=== PATIENT | female | born 1985 | race Caucasian/White ===

== ENCOUNTER → 2017-01-09 | Outpatient (CLI) | payer BC ==
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
== END | disposition home or self-care (01) ==
LOC: RADUSWWP 11:52
PROVIDERS: ATTEND Family Medicine
DX: R10.11 Right upper quadrant pain (principal)
CPT/HCPCS: 76700

== ENCOUNTER → 2017-04-01 | Outpatient (CLI) | payer BC ==
--- NOTE | 2017-04-02 07:40 | WWHP ---
[facility] - HISTORY AND PHYSICAL DATE OF SERVICE: 04/01/17 CHIEF COMPLAINT: The patient is here for her routine gynecologic exam. HISTORY OF PRESENT ILLNESS: This is a 32-year-old G1, P 1, with an LMP of 03/31/2017. She is on Julebuer oral contraceptives for control. The patient states she has been experiencing some pelvic pressure and occasional sharp pains in the pelvic area for the past few months. She states it has been intermittent and random. She does tend to feel pressure in the pelvis more in the past few months. The sharper pains are infrequent but are mostly on the right side. When she does have the sharp pains that could be rated at a 6 out of 10. She does have a history of an ovarian cyst that was followed conservatively in 2014. PAST MEDICAL HISTORY: Unremarkable. MEDICATIONS: Julebuer oral contraception 1 daily. ALLERGIES: TO BACTRIM AND CIPROFLOXACIN. PAST SURGICAL HISTORY: Unremarkable. 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 She does have a history of mild hypermenorrhea and mild dysmenorrhea when she is not on oral contraception. She has no history of STDs. SOCIAL HISTORY: She smokes a half a pack of cigarettes per day and has 0-6 alcohol containing drinks per week. She denies drug use. She has been since 2012. 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 FAMILY HISTORY: Maternal grandmother had breast, cervical and ovarian cancer. She also believes maternal great aunt had breast cancer. REVIEW OF SYSTEMS: She has been but gained about 5 pounds over the last year. She denies respiratory, cardiac or GI problems. PHYSICAL EXAM: Blood pressure 113/63, height 5 feet 3 inches, weight 144 pounds, temperature 96.5, pulse 107. This is a well-developed, well-nourished, white female, who is alert and oriented x3, in no acute distress. HEENT is within normal limits. NECK: Supple without mass or thyromegaly. Chest, LUNGS: Clear to auscultation. Heart mild tachycardia. Breasts are without mass or discharge. Axillary exam is negative for adenopathy. Back negative for CVA tenderness. ABDOMEN: Soft, nontender, without palpable masses pelvic exam normal external genitalia. Cervix and vagina appear normal. There is no unusual discharge. There is no cervical motion tenderness. The uterus is mid position nongravid size and there is some mild uterine tenderness with bimanual examination. There is also mild right adnexal tenderness without a palpable mass. There is no left adnexal tenderness or mass. Rectal exam is negative for mass or tenderness. EXTREMITIES: Nontender. IMPRESSION: 1. A 32-year-old female on oral contraception. 2. Pelvic pressure and intermittent right sharp pelvic pains over the past few months with mild uterine and right adnexal tenderness on exam today. PLAN: 1. Pap smear was deferred since she had a negative one last year. 2. Self breast examination was discussed. 3. Continue oral contraception as prescribed and a prescription for the upcoming year was given to the patient for this. 4. Pelvic ultrasound will be scheduled because of the pelvic pressure, pain and tenderness. 5. I have recommended that the patient quit smoking as she understands the risk for blood clots, including heart attack, stroke are increased with oral contraception and more increased with smoking. 6. She will return in 1 year. MMODL / IJN: [id number] /
== END | disposition home or self-care (01) ==
LOC: WWCWWP 11:31
PROVIDERS: ATTEND Obstetrics & Gynecology
DX: Z01.411 Encounter for gynecological examination (general) (routine) with abnormal findings (principal); R10.2 Pelvic and perineal pain

== ENCOUNTER → 2017-04-02 | Outpatient (CLI) | payer BC ==
--- NOTE | 2017-04-02 13:47 | US ---
EXAMINATION TYPE: US transvaginal DATE OF EXAM: 04/02/2017 COMPARISON: NONE CLINICAL HISTORY: R10.2 PELVIC PAIN RIGHT. Pelvic pressure, intermittent right pelvic pain TECHNIQUE: Transvaginal (TV) Date of LMP: 03/27/17 EXAM MEASUREMENTS: Uterus: 8.1 x 4.0 x 4.7 cm Endometrial Stripe: 0.2 cm Right Ovary: 3.0 x 2.2 x 1.9 cm Left Ovary: 2.3 x 1.3 x 1.2 cm 1. Uterus: Anteverted mildly heterogenous echotexture with no focal measurable lesion. 2. Endometrium: appears wnl 3. Right Ovary: follicles noted 4. Left Ovary: follicles noted 5. Bilateral Adnexa: appears wnl 6. Posterior cul-de-sac: small amount of free fluid IMPRESSION: 1. Previously seen ovarian cysts are no longer evident and were likely physiologic, now resolved. 2. Small amount of pelvic free fluid, likely physiologic in nature.
== END | disposition home or self-care (01) ==
LOC: RADUSWWP 13:04
PROVIDERS: ATTEND Obstetrics & Gynecology
DX: R10.2 Pelvic and perineal pain (principal)
CPT/HCPCS: 76830

== ENCOUNTER → 2018-05-19 | Outpatient (CLI) | payer BC ==
[2018-05-19 13:37] LABS: Appearance,Urine Clear (Clear); Bilirubin,Urine Negative (Negative); Blood,Urine Negative (Negative); Color,Urine Light Yellow; Glucose,Urine (UA) Negative (Negative); Ketones,Urine Negative (Negative); Leukocyte Esterase,Urine Negative (Negative); Nitrite,Urine Negative (Negative); PH, Urine 6.5 (5.0-8.0); Protein,Urine Negative (Negative); Specific Gravity,Urine 1.005 (1.001-1.035); Urobilinogen,Urine <2.0 mg/dL (<2.0)
[2018-05-19 21:39] LABS: Protein, Total 6.4 g/dL (6.2-8.2)
[2018-05-20 15:33] LABS: Albumin 3.78 g/dL (3.80-4.90); Gamma Globulin 0.79 g/dL (0.70-1.50)
== END ==
LOC: LABWHC1 12:23
PROVIDERS: ATTEND Allergy & Immunology
DX: L50.9 Urticaria, unspecified (principal)
CPT/HCPCS: 36415; 81003; 82784; 84165; 86334; 88184; 88185

== ENCOUNTER → 2018-05-27 | Outpatient (CLI) | payer BC ==
--- NOTE | 2018-05-27 13:51 | XR ---
EXAMINATION TYPE: XR chest 2V DATE OF EXAM: 05/27/2018 COMPARISON: NONE HISTORY: Chest pain TECHNIQUE: Frontal and lateral views of the chest are obtained. FINDINGS: There is no focal air space opacity. No evidence for pneumothorax. No pleural effusion. The cardiac silhouette size is within normal limits. The osseous structures are grossly intact. IMPRESSION: 1. No acute cardiopulmonary process.
[2018-05-28 13:22] LABS: Beef IgE <0.35 kU/L (<0.35); Beef IgE Class CLASS 0; Broccoli IgE <0.35 kU/L (<0.35); Broccoli IgE Class CLASS 0; Cucumber IgE <0.35 kU/L (<0.35); Cucumber IgE Class CLASS 0
[2018-05-28 13:23] LABS: Carrot IgE 2.22 kU/L (<0.35); Carrot IgE Class CLASS II; Potato IgE 1.34 kU/L (<0.35); Potato IgE Class CLASS II
[2018-05-28 13:24] LABS: Chicken IgE Class CLASS 0; Coffee IgE <0.35 kU/L (<0.35); Coffee IgE Class CLASS 0; Onion IgE 0.66 kU/L (<0.35); Onion IgE Class CLASS I
== END | disposition home or self-care (01) ==
LOC: LABWHC1 12:52
PROVIDERS: ATTEND Allergy & Immunology
DX: R07.9 Chest pain, unspecified (principal); L50.9 Urticaria, unspecified
CPT/HCPCS: 36415; 71046; 86003

== ENCOUNTER → 2019-02-11 | Outpatient (CLI) | payer BC ==
--- NOTE | 2019-02-12 01:40 | MR ---
EXAMINATION TYPE: MR brain wo con DATE OF EXAM: 02/11/2019 COMPARISON: None HISTORY: Transient cerebral ischemic attack Standard multiplanar, multisequence MRI departmental protocol Multiplanar, multisequence images of the brain were acquired. Diffusion weighted imaging was performe d. FINDINGS: Ventricles and sulci appear normal. There is no mass effect nor midline shift. There is no sign of intracranial hemorrhage. There is no evidence of cortical infarct. Hathaway-white matter structur es have fairly normal signal pattern. There is no evidence of cerebral edema. There is some mucosal m ild thickening in the anterior ethmoid sinus. Brainstem is intact. Corpus callosum appears normal. Se lla turcica is normal. IMPRESSION: Normal MR scan of the brain. Minimal ethmoid sinusitis.
== END | disposition home or self-care (01) ==
LOC: RADMRIMAIN 16:29
PROVIDERS: ATTEND Internal Medicine
DX: J32.2 Chronic ethmoidal sinusitis (principal); G45.9 Transient cerebral ischemic attack, unspecified
CPT/HCPCS: 70551

== ENCOUNTER 2019-10-08 01:02 | Inpatient (IN) | payer BC ==
[2019-10-08] MEDS ORDERED: LIDOCAINE 0.5% (PF) 5 MG/ML (50 ML SDV) SQ PRN (01:35)
[2019-10-08] MEDS ORDERED: OXYTOCIN 10 UNIT/ML 1 ML VIAL IM PRN (01:35)
[2019-10-08] MEDS ORDERED: CARBOPROST TROMETHAMINE 250 MCG/ML 1 ML AMP IM PRN (01:35)
[2019-10-08] MEDS ORDERED: AMPICILLIN 2,000 MG in SODIUM CHLORIDE 0.9% 100 ML IVPB STA (01:35)
[2019-10-08] MEDS ORDERED: TERBUTALINE 1 MG/ML VIAL SQ PRN (01:35)
[2019-10-08] MEDS ORDERED: METHYLERGONOVINE 0.2 MG/ML 1 ML AMP IM PRN (01:35)
[2019-10-08] MEDS: LACTATED RINGERS 1,000 ML IV SCH ×2 (02:01→06:33)
[2019-10-08 02:13] LABS: Basophils % (A) 0 %; Eosinophils # (A) 0.2 k/uL (0-0.7); Eosinophils % (A) 2 %; HCT 34.6 % (34.0-46.0); HGB 11.8 gm/dL (11.4-16.0); Lymphocytes # (A) 2.4 k/uL (1.0-4.8); Lymphocytes % (A) 21 %; MCH 31.4 pg (25.0-35.0); MCV 92.3 fL (80.0-100.0); Mean Platelet Volume 9.4; Monocytes # (A) 0.6 k/uL (0-1.0); Monocytes % (A) 5 %; Neutrophils # (A) 7.8 k/uL (1.3-7.7); Neutrophils % (A) 69 %; Platelet Count 241 k/uL (150-450); RBC 3.75 m/uL (3.80-5.40); RDW 14.1 % (11.5-15.5); WBC 11.4 k/uL (3.8-10.6)
[2019-10-08] MEDS ORDERED: BUTORPHANOL 1 MG/ML 1 ML VIAL IV PRN (04:39)
[2019-10-08] MEDS ORDERED: OXYTOCIN 30 UNITS/500 ML NS 30 UNIT in SALINE 1 500ML.BAG IV SCH (05:00)
[2019-10-08] MEDS: AMPICILLIN 1,000 MG in SODIUM CHLORIDE 0.9% 50 ML IVPB SCH ×2 (06:09→10:44)
[2019-10-08] MEDS ORDERED: ROPIVACAINE 5MG/ML 20ML VIAL ONE (06:16)
[2019-10-08] MEDS ORDERED: SODIUM CHLORIDE 0.9% 100 ML BAG ONE (06:16)
[2019-10-08] MEDS ORDERED: fentaNYL (PF) 50 MCG/ML 5 ML AMP ONE (06:16)
[2019-10-08] MEDS ORDERED: HYDROcodone/APAP 5-325MG 1 EACH TAB PO PRN (08:40)
[2019-10-08] MEDS ORDERED: SIMETHICONE 80 MG CHEWABLE PO PRN (08:40)
[2019-10-08] MEDS ORDERED: diphenhydrAMINE 50 MG/ML 1 ML VIAL IVP PRN ×2 (08:40)
[2019-10-08] MEDS ORDERED: WITCH HAZEL 1 EACH MED..PAD TOPICAL PRN (08:40)
[2019-10-08] MEDS ORDERED: diphenhydrAMINE 25 MG CAP PO PRN (08:40)
[2019-10-08] MEDS ORDERED: ACETAMINOPHEN TAB 325 MG TAB PO PRN (08:40)
[2019-10-08] MEDS ORDERED: BENZOCAINE/MENTHOL SPRAY 1 GM/SPRAY AEROSOL TOPICAL PRN (08:40)
[2019-10-08] MEDS ORDERED: HYDROCORTISONE 2.5% RECTAL CREAM 30 GM TUBE RECTAL PRN (08:40)
[2019-10-08] MEDS ORDERED: diphenhydrAMINE 50 MG CAP PO PRN (08:40)
[2019-10-08] MEDS ORDERED: LANOLIN CREAM 5 GM TUBE TOPICAL PRN (08:40)
[2019-10-08] MEDS ORDERED: ZOLPIDEM 5 MG TAB PO PRN (08:40)
--- NOTE | 2019-10-08 08:40 | P.HPOB ---
History of Present Illness H&P Date: 10/08/19 Chief Complaint: IUP at 39 and 5/sevenths weeks, SROM, gbs pos This is a 34-year-old 2 para 1001 at 39-5/7 weeks with an estimated due date of 10/10/19 based on first trimester ultrasound. Patient presents with complaints of rupture of membranes around midnight. Charis ent states fluid was noted to be clear in nature. Patient has been receiving routine care since the first trimester. Patient has known polyhydramnios and has been undergoing testing for this. Ultrasound was completed on 10/03 noted estimated weight of 74th percentile, 8 lbs. 5 oz. with amniotic fluid index of 27 consistent with polyhydramnios. On blood work patient has a blood type of A+, rubella immune, RPR, hepatitis B surface engine negative, HIV negative. She did fail her 1 hour Glucola but subsequently passed her 3 hour gtt. Known thyroid disease and thyroid has been stable through the . Group beta strep is positive on 09/13/2019. Review of Systems Constitutional: Denies chills, Denies fatigue, Denies fever Ears, nose, mouth and throat: Denies headache Cardiovascular: Reports leg edema Respiratory: Denies dyspnea Gastrointestinal: Denies nausea, Denies vomiting Genitourinary: Reports Past Medical History Past Medical History: No Reported History History of Any Multi-Drug Resistant Organisms: None Reported Past Surgical History: No Surgical Hx Reported Past Anesthesia/Blood Transfusion Reactions: No Reported Reaction Past Psychological History: No Psychological Hx Reported Smoking Status: Former smoker Past Alcohol Use History: None Reported Past Drug Use History: None Reported - Past Family History Mother Family Medical History: Thyroid Disorder Additional Family Medical History / Comment(s): hypothyroid Medications and Allergies Allergies Allergy/AdvReac Type Severity Reaction Status Date / Time ciprofloxacin [From Cipro] Allergy Severe Anaphylaxis Verified 10/08/19 01:06 azithromycin Allergy Intermediate Rash/Hives Verified 10/08/19 01:06 sulfamethoxazole Allergy Intermediate Nausea & Verified 10/08/19 01:06 [From Bactrim] Vomiting trimethoprim [From Bactrim] Allergy Intermediate Nausea & Verified 10/08/19 01:06 Vomiting Latex, Natural Rubber Allergy Unknown Unknown Verified 10/08/19 01:06 shellfish derived [Shellfish] Allergy Unknown Unknown Verified 10/08/19 01:06 Exam Osteopathic Statement: *. No significant issues noted on an osteopathic structural exam other than those noted in the History and Physical/Consult. 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 Patient was noted to be 8-9/100/-1 station. Results Result Diagrams: 10/08/19 02:06 Abnormal Lab Results - Last 24 Hours (Table) 10/08/19 Range/Units 02:06 WBC 11.4 H (3.8-10.6) k/uL RBC 3.75 L (3.80-5.40) m/uL Neutrophils # 7.8 H (1.3-7.7) k/uL Assessment and Plan (1) Term Current Visit: Yes Status: Acute Code(s): Z34.90 - ENCNTR FOR SUPRVSN OF NORMAL , UNSP, UNSP TRIMESTER SNOMED Code(s): 86023482 (2) AMA (advanced maternal age) multigravida 35+ Current Visit: Yes Status: Acute Code(s): O09.529 - SUPERVISION OF ELDERLY MULTIGRAVIDA, UNSPECIFIED TRIMESTER SNOMED Code(s): 023478838 (3) Polyhydramnios Current Visit: Yes Status: Acute Code(s): O40.9XX0 - POLYHYDRAMNIOS, UNSP TRIMESTER, NOT APPLICABLE OR UNSP SNOMED Code(s): 35818222 (4) SROM (spontaneous rupture of membranes) Current Visit: Yes Status: Acute Code(s): XZA8611 - SNOMED Code(s): 497778121 Plan: Patient is admitted to labor and delivery with anticipation of spontaneous vaginal delivery.
--- NOTE | 2019-10-08 08:44 | P.PROBDLV ---
Vaginal Delivery Note - . Vaginal Delivery Note: This is a 34-year-old 2 para 1001 at 39-5/7 weeks that presents to labor and delivery with complaints of spontaneous rupture is of membranes. Patient noted fluid to be clear in nature. Patient was admitted to labor and delivery and noted to be 3 cm dilated. Patient made minimal progress through labor and Pitocin augmentation of labor was begun. Patient became uncomfortable requested epidural placement. Epidural was placed without difficulty by the anesthesia department. Patient progressed to complete began pushing and had a normal spontaneous vaginal delivery of a viable male at 822, weight of 8 lbs. 8 oz. with Apgars of 7 and 9 at one and 5 minutes respectively. Infant was noted to have a nuchal cord which was delivered through, the was handed off to the maternal abdomen. The placenta was then delivered spontaneously intact with a three-vessel cord being noted. Inspection the patient's vaginal vault a small first-degree vaginal laceration was noted which was repaired with a [id number] suture of 3-0 Rapide. A labial laceration on the patient's right was noted therefore 2 simple sutures were used to obtain closure. The uterus is noted to be firm and below the umbilicus after delivery. Estimated blood loss 100 mL. Mom and infant tolerated delivery well and are resting complete.
[2019-10-08] MEDS ORDERED: OXYTOCIN 20 UNITS/1000 ML NS 1,000 ML IV SCH (08:45)
[2019-10-08] MEDS: IBUPROFEN 600 MG TAB PO PRN ×3 (10:42→23:21)
[2019-10-08] MEDS ORDERED: SENNOSIDES-DOCUSATE SODIUM 1 EACH TAB PO SCH (20:00)
[2019-10-08] MEDS: ACETAMINOPHEN TAB 500 MG TAB PO PRN (20:26)
[2019-10-09] MEDS: ACETAMINOPHEN TAB 500 MG TAB PO PRN (02:39)
[2019-10-09] MEDS: IBUPROFEN 600 MG TAB PO PRN (06:18)
[2019-10-09 07:48] LABS: Basophils # (A) 0.1 k/uL (0-0.2); Basophils % (A) 0 %; Eosinophils # (A) 0.3 k/uL (0-0.7); Eosinophils % (A) 2 %; HCT 31.9 % (34.0-46.0); HGB 10.4 gm/dL (11.4-16.0); Lymphocytes # (A) 2.8 k/uL (1.0-4.8); Lymphocytes % (A) 20 %; MCH 30.9 pg (25.0-35.0); MCHC 32.7 g/dL (31.0-37.0); MCV 94.6 fL (80.0-100.0); Mean Platelet Volume 9.1; Monocytes # (A) 0.6 k/uL (0-1.0); Monocytes % (A) 4 %; Neutrophils % (A) 71 %; Platelet Count 211 k/uL (150-450); RBC 3.37 m/uL (3.80-5.40); RDW 14.4 % (11.5-15.5); WBC 14.1 k/uL (3.8-10.6)
[2019-10-09 08:29] VITALS: BP 120/66; PULSE 90; RESP 18; TEMP 97.9
--- NOTE | 2019-10-09 10:47 | P.DS ---
Providers Date of admission: 10/08/19 01:24 Expected date of discharge: 10/09/19 Attending physician: Ephraim Mahmood Primary care physician: Stated None Hospital Course: This is a 34-year-old white female 2 para 1001 EDC 10/10/2019 at 39-5/7 weeks' gestation. Patient presented with spontaneous amniorrhexis which occurred at home, clear fluid. is remarkable for rubella status immune, positive group B strep cultures, blood type A+. Please see dictated history and physical for details. Oxytocin augmentation was started per protocol. Patient went on to deliver vaginally a liveborn male with scores of 7 and 9 at one and 5 minutes respectively. He weighed 8 lbs. 8 oz. or 3850 g. There was a fractured clavicle noted at per insurance analyst, good mobility and function and good blood flow of the extremity. There was a small first-degree perineal laceration easily repaired. Please see dictated delivery note for details. This morning the patient is doing well. She is fatigued, but otherwise voiding, ambulating, passing flatus without difficulty. Vital signs are stable and she is afebrile. Fundus is firm, below the umbilicus, nontender smooth and symmetric. Extremities are negative for edema. Breasts are not engorged. Patient is judged to be in very good condition for discharge home. Patient will follow-up in the office with Dr. Matos in 4 weeks. She is reminded no intercourse, tampons or douching. We have briefly discussed contraceptive options and she will discuss this further in the office. Instructions are giving regarding proper care of the fractured clavicle and patient appears comfortable with same. She will call the office with any fevers shakes or chills, foul smelling or copious lochia, with the passage of large blood clots, with any pain not alleviated by [id number] products, or indeed with any concerns. Patient Condition at Discharge: Good Plan - Discharge Summary Discharge Rx Participant: No Follow up Appointment(s)/Referral(s): Jesi Matos DO [Doctor of Osteopathic Medicine] - 4 Weeks Discharge Disposition: HOME SELF-CARE
== END 2019-10-09 12:15 | disposition home or self-care (01) | DRG 807 ==
LOC: FBPOP 01:02 → 4FBP 01:24
PROVIDERS: ADMIT Obstetrics & Gynecology Obstetrics; ATTEND Obstetrics & Gynecology
DX: O69.81X0 Labor and delivery complicated by cord around neck, without compression, not applicable or unspecified (principal); Z37.0 Single live birth; O40.3XX0 Polyhydramnios, third trimester, not applicable or unspecified; O70.0 First degree perineal laceration during delivery; O99.284 Endocrine, nutritional and metabolic diseases complicating childbirth; O99.824 Streptococcus B carrier state complicating childbirth; E07.9 Disorder of thyroid, unspecified; Z3A.39 39 weeks gestation of pregnancy; Z87.891 Personal history of nicotine dependence; Z88.2 Allergy status to sulfonamides; Z88.1 Allergy status to other antibiotic agents; Z91.040 Latex allergy status; Z91.013 Allergy to seafood
CPT/HCPCS: 59025; 84112; 85025; 86850; 86900; 86901; 99213

== ENCOUNTER → 2023-09-22 | Outpatient (CLI) | payer BC ==
--- NOTE | 2023-09-25 22:53 | MM ---
Reason for Exam: Screening (asymptomatic). Baseline mammogram. Patient History: Menarche at age 11. First Full-Term at age 17. Patient has history of breast feeding. Patient used Hormonal Contraceptives for 8 years. Maternal grandmother had breast cancer at or over age 50. Last menstrual period: 09/08/2023 Risk Values: Jenny 5 year model risk: 0.4%. NCI Lifetime model risk: 7.4%. Prior Study Comparison: Patient's first Mammogram. Tissue Density: The breasts are heterogeneously dense, which may obscure small masses. Findings: Analyzed By CAD. The pattern is symmetrical. No suspicious groups of microcalcifications, spiculated or lobular masses, architectural distortion or other secondary signs of malignancy are mammographically apparent.The pattern is symmetrical. Small focal asymmetry may be within the mid lateral left breast. No suspicious groups of microcalcifications, spiculated or lobular masses, architectural distortion or other secondary signs of malignancy are mammographically apparent. Overall Assessment: Benign, BI-RAD 2 Management: Screening Mammogram of both breasts in 1 year. A negative mammogram report should not preclude additional follow up of suspicious palpable abnormalities. Patient should continue monthly self breast exam. A clinical breast exam by your physician is recommended on an annual basis and results should be correlated with mammographic findings. Electronically signed and approved by: Antoni De Los Santos D.O. Radiologis
== END | disposition home or self-care (01) ==
LOC: RADMAMWWP 13:38
PROVIDERS: ATTEND Family Medicine
DX: Z12.31 Encounter for screening mammogram for malignant neoplasm of breast (principal); Z80.3 Family history of malignant neoplasm of breast
CPT/HCPCS: 77063; 77067

== ENCOUNTER → 2023-10-07 | Outpatient (CLI) | payer BC ==
[2023-10-07 11:50] VITALS: BP 118/76; PULSE 101; RESP 17; TEMP 97.8
--- NOTE | 2023-10-07 12:33 | P.HPOB ---
History of Present Illness H&P Date: 10/07/23 Chief Complaint: The patient is here for her routine gynecologic exam. This is a 38-year-old G2, P2 with an LMP of 09/08/2023. Patient is here to reestablish with this office. Her last pelvic exam was after having her baby in 2019. He has been using condoms for control. Her was scheduled for a vasectomy, but he did not go through with it. She is without gynecologic complaints. Review of Systems The patient has gained 10 pounds over the last year. She denies respiratory, cardiac, or G.I. problems. 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 History of Any Multi-Drug Resistant Organisms: None Reported Past Surgical History: No Surgical Hx Reported Past Anesthesia/Blood Transfusion Reactions: No Reported Reaction Past Psychological History: No Psychological Hx Reported Smoking Status: Current every day smoker (About a half a pack of cigarettes per day.) Past Alcohol Use History: Occasional (0-6 drinks per week.) Past Drug Use History: None Reported Additional History: She has been since 2012. - Past Family History Mother Family Medical History: Thyroid Disorder Additional Family Medical History / Comment(s): hypothyroid Grandmother Family Medical History: Cancer Additional Family Medical History / Comment(s): Breast, cervical, and ovarian cancer. This was a maternal grandmother. Medications and Allergies Home Medications Medication Instructions Recorded Confirmed Type Cetirizine HCl [Zyrtec] 10 mg PO DAILY 10/07/23 10/07/23 History Allergies Allergy/AdvReac Type Severity Reaction Status Date / Time ciprofloxacin [From Cipro] Allergy Severe Anaphylaxis Verified 10/07/23 11:41 azithromycin Allergy Intermediate Rash/Hives Verified 10/07/23 11:41 sulfamethoxazole Allergy Intermediate Nausea & Verified 10/07/23 11:41 [From Bactrim] Vomiting trimethoprim [From Bactrim] Allergy Intermediate Nausea & Verified 10/07/23 11:41 Vomiting Latex, Natural Rubber Allergy Unknown Unknown Verified 10/07/23 11:41 shellfish derived [Shellfish] Allergy Unknown Unknown Verified 10/07/23 11:41 Exam Vital Signs Temp Pulse Resp BP Pulse Ox 10/07/23 11:43 97.8 F 101 H 17 118/76 98 Height 5 feet 2 inches, weight 160 pounds, BMI 9. This is a well-developed well-nourished female who is alert and oriented times 3 in no acute distress. HEENT: Within normal limits. NECK: Supple without mass or thyromegaly. CHEST AND LUNGS: Clear to auscultation. HEART: Regular rate and rhythm. BREASTS: Are without mass or discharge. AXILLARY EXAM: Negative for adenopathy. BACK: Negative for CVA tenderness. ABDOMEN: Soft, nontender, without palpable masses. PELVIC EXAM: Normal external genitalia. Cervix and vagina appear normal. There is no unusual discharge. There is no evidence of prolapse. The uterus is midposition, nongravid size and nontender. There are no palpable adnexal masses or tenderness. RECTAL EXAM: negative for mass or tenderness. EXTREMITIES: Nontender. IMPRESSION: 1. 38-year-old female with normal gynecologic exam. 2. Condoms for control. PLAN: 1. Pap smear cotest was performed. 2. Self breast awareness was discussed with the patient. We have also discussed symptoms associated with inflammatory breast cancer. 3. Screening mammogram was done on 09/22/2023 and was benign. Repeat this after 1 year 4. Osteoporosis prevention was discussed. I have stressed the importance of adequate calcium, vitamin D and regular exercise. Recommended amounts of calcium and vitamin D were also discussed. 5. With control options were discussed including vasectomy, tubal sterilization, IUD. She still is hoping that her will go through with having the vasectomy. If so, I have recommended that she use condoms until he has gone for the follow-up and after it has been found to be effective. If she is considering tubal sterilization or the IUD, she can see Dr. Mahmood who saw her through her recent . 6. She was advised to return in one year for her annual well woman exam.
== END ==
LOC: WWCWWP 11:21
PROVIDERS: ATTEND Obstetrics & Gynecology
DX: Z01.419 Encounter for gynecological examination (general) (routine) without abnormal findings (principal); F17.210 Nicotine dependence, cigarettes, uncomplicated; Z88.1 Allergy status to other antibiotic agents; Z88.2 Allergy status to sulfonamides; Z91.040 Latex allergy status; Z91.013 Allergy to seafood

== ENCOUNTER → 2024-05-04 | Outpatient (CLI) | payer BC ==
--- NOTE | 2024-05-04 13:47 | XR ---
EXAMINATION TYPE: XR sacroiliac joint comp BILAT DATE OF EXAM: 05/04/2024 1:34 PM COMPARISON: None. 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 FINDINGS: Sacroiliac joints are normal. Sacrum appears intact. No joint space narrowing is evident. IMPRESSION: 1. Unremarkable sacroiliac joints. [facility], , 05/04/2024 1:45 PM
--- NOTE | 2024-05-04 13:48 | XR ---
EXAMINATION TYPE: XR lumbar spine 2 or 3V DATE OF EXAM: 05/04/2024 1:34 PM COMPARISON: None. CLINICAL INDICATION: Female, 39 years old with history of G57.01 LESION OF SCIATIC NERVE, increasing low back pain radiating to pelvis TECHNIQUE: XR lumbar spine 2 or 3V view(s) obtained. FINDINGS: 5 lumbar type vertebral bodies. Pedicles are intact. There is narrowing of the L5-S1 disc height. Anthony tebral body heights are preserved. Remaining disc heights are preserved. Alignment is normal. IMPRESSION: 1. Degenerative disc changes L5-S1. [facility], , 05/04/2024 1:46 PM
== END | disposition home or self-care (01) ==
LOC: RADXRMAIN 13:01
PROVIDERS: ATTEND Family Medicine
DX: M51.370 Other intervertebral disc degeneration, lumbosacral region with discogenic back pain only (principal); G57.01 Lesion of sciatic nerve, right lower limb
CPT/HCPCS: 72100; 72202

== ENCOUNTER → 2024-07-26 | Outpatient (CLI) | payer BC ==
[2024-07-26 19:09] LABS: Protein, Total 7.1 g/dL (6.2-8.2)
[2024-07-26 19:16] LABS: Basophils % (A) 1.3 %; Eosinophils # (A) 0.13 X 10*3/uL (0.04-0.35); Eosinophils % (A) 1.7 %; HCT 42.1 % (37.2-46.3); HGB 13.9 g/dL (12.0-15.0); Lymphocytes % (A) 31.8 %; MCH 30.8 pg (27.0-32.0); MCV 93.3 FL (80.0-97.0); Mean Platelet Volume 10.4 FL (9.5-12.2); Monocytes # (A) 0.45 X 10*3/uL (0.20-1.00); Monocytes % (A) 5.7 %; NRBC Per 100 WBC 0 X 10*3/uL (0.00-0.01); Neutrophils # (A) 4.65 X 10*3/uL (1.80-7.70); Neutrophils % (A) 59.1 %; Platelet Count 298 X 10*3/uL (140-440); RBC 4.51 X 10*6/uL (4.10-5.20); RDW 13.2 % (11.5-14.5); WBC 7.86 X 10*3/uL (4.50-10.00)
[2024-07-26 19:17] LABS: ALT 9 U/L (8-44); AST 13 U/L (13-35); Albumin 4.6 g/dL (3.8-4.9); Albumin/Globulin Ratio 1.84 Ratio (1.60-3.17); Alkaline Phosphatase 69 U/L (41-126); BUN/Creat Ratio 17.14 Ratio (12.00-20.00); Calcium 9.7 mg/dL (8.7-10.3); Carbon Dioxide 22.6 mmol/L (21.6-31.8); Chloride 105 mmol/L (96-109); Chol/HDL Ratio 2.33 Ratio; Globulin 2.5 g/dL (1.6-3.3); Glucose 97 mg/dL (70-110); LDH 157 U/L (120-246); LDL Cholesterol,Calculated 89.9 mg/dL (0.0-131.0); Potassium 4.4 mmol/L (3.5-5.5); Sodium 139 mmol/L (135-145); Total Bilirubin 0.3 mg/dL (0.3-1.2); Total Protein 7.1 g/dL (6.2-8.2); VLDL Calculation 14.72 mg/dL (5.00-40.00)
[2024-07-26 19:35] LABS: Erythrocyte Sedimentation Rate 6 mm/Hr (0-20)
[2024-07-27 12:13] LABS: Free Kappa Lt Chain Qnt, Serum 1.17 mg/dL (0.33-1.94); Free Lambda Lt Chain Qnt, Seru 0.93 mg/dL (0.57-2.63)
== END | disposition home or self-care (01) ==
LOC: LABWHC1 14:15
PROVIDERS: ATTEND Family Medicine
DX: M13.0 Polyarthritis, unspecified (principal); G43.909 Migraine, unspecified, not intractable, without status migrainosus; M79.7 Fibromyalgia; R07.9 Chest pain, unspecified
CPT/HCPCS: 36415; 80053; 80061; 82164; 82550; 82552; 83615; 83883; 84165; 84443; 84484; 85025; 85379; 85652; 86334

== ENCOUNTER → 2024-09-22 | Outpatient (CLI) | payer BC ==
--- NOTE | 2024-09-22 14:45 | MM ---
Reason for Exam: Screening (asymptomatic). Last screening mammogram was performed 12 month(s) ago. Patient History: Menarche at age 11. First Full-Term at age 17. Patient has history of breast feeding. Patient used Hormonal Contraceptives for 8 years. Maternal grandmother had breast cancer at or over age 50. Risk Values: Jenny 5 year model risk: 0.4%. NCI Lifetime model risk: 7.3%. Prior Study Comparison: 09/22/2023 Bilateral MG 3D screening mammo w/cad, [facility]. Tissue Density: The breasts are heterogeneously dense, which may obscure small masses. Findings: Analyzed By CAD. There is no suspicious group of microcalcifications or new suspicious mass in either breast. And benign-appearing calcifications. Asymmetric density in the central aspect of the left breast. Overall Assessment: Benign, BI-RAD 2 Management: Screening Mammogram of both breasts in 1 year. . Patient should continue monthly self-breast exams. A clinical breast exam by your physician is recommended on an annual basis. This exam should not preclude additional follow-up of suspicious palpable abnormalities. Note on Jenny scores and lifetime risk: 1. A Jenny score greater than 3% is considered moderate risk. If this is the case, consider specialist referral to assess eligibility for a risk reducing agent. 2. If overall lifetime risk for the development of breast cancer is 20% or higher, the patient may qualify for future screening with alternating mammogram and breast MRI. [facility], , 09/22/2024 2:42 PM. Electronically signed and approved by: Jarvis Delgado M.D. Radiologis
== END | disposition home or self-care (01) ==
LOC: RADMAMWWP 13:54
PROVIDERS: ATTEND Family Medicine
DX: Z12.31 Encounter for screening mammogram for malignant neoplasm of breast (principal); R92.333 Mammographic heterogeneous density, bilateral breasts; Z92.0 Personal history of contraception; Z80.3 Family history of malignant neoplasm of breast
CPT/HCPCS: 77063; 77067